=== PATIENT | female | born 1990 | race Two or more races ===

== ENCOUNTER 2018-01-10 23:02 | Emergency (ER) | payer MEDICAID ==
[~2018-01-10] VITALS: Ht 160 cm; Wt 68.0 kg
[~2018-01-10 23:02] MED LIST: CEPH250C PO; NIF10C GT; PREN-153 OR; [UNRECOGNIZED DRUG - CODE] XX
[2018-01-10 23:15] VITALS: BP 126/84
[2018-01-10] MEDS ORDERED: HYDROcodone-ACET 5/325MG TAB PO ONE (23:45)
== END 2018-01-11 01:55 | disposition home or self-care (01) ==
LOC: EDBD 23:02 → ER 23:14
DX: S93.401A Sprain of unspecified ligament of right ankle, initial encounter (principal); E11.9 Type 2 diabetes mellitus without complications; Z91.018 Allergy to other foods; W19.XXXA Unspecified fall, initial encounter; Y93.89 Activity, other specified; Y92.89 Other specified places as the place of occurrence of the external cause; Y99.8 Other external cause status
CPT/HCPCS: 73610